=== PATIENT | male | born 1965 | race African-American/Black ===

== ENCOUNTER 2017-03-28 09:03 | Outpatient (CLI) | payer OTHER ==
[~2017-03-28 09:03] MED LIST: BACTRIM-DS1 EA ORAL; CEPHALEXIN500 MG ORAL
--- NOTE | 2017-03-28 14:36 | Diagnostic Imaging Report ---
Indication: Back pain Technique: MRI examination of the Lumbar spine was performed in a 1.5 Debbie magnet. Sequences obtained include sagittal and axial T1 and T2 fast spin echo, and sagittal STIR. Comparison: none Findings: There is a fairly wide based disc herniation likely extrusion at L5-S1 with portions of the herniated disc compressing the central thecal sac compromising the lateral recess and extending into the neural foramina. The disc is asymmetric with more mass effect on the left neural foramen than the right. There is visualized compression of the traversing S1 nerve roots both on parasagittal and transaxial images. There is mild foraminal stenosis present on the basis of a superimposed disk bulge extending into the foramina and hypertrophied facets. The disc is narrowed and desiccated. There are endplate spurs with fatty signal changes. There is generalized facet hypertrophy demonstrated within the lumbar spine most notably at L4-5. Remainder of the examination is normal. Conus medullaris seen at T12. Intervertebral discs are otherwise normal in appearance. There is no central lateral recess or neural foraminal stenosis. Bone marrow signal is otherwise normal. Alignment is normal. No abnormal fluid collections are seen. No soft tissue abnormalities are demonstrated. Ejection a parapelvic cysts within the left kidney. IMPRESSION: Wide-based disc herniation likely extrusion at L5-S1 with compression of the central thecal sac, compromise of the lateral recess with compression of the traversing S1 nerve roots bilaterally. This level also notable for mild neural foraminal stenosis on the basis of the disc pathology and facet hypertrophy. Mild generalized facet arthrosis noted.
== END 2017-03-28 11:03 | disposition home or self-care (01) ==
LOC: MRI 09:03
DX: M51.36 Other intervertebral disc degeneration, lumbar region (principal)
CPT/HCPCS: 72148

== ENCOUNTER 2018-05-30 13:24 | Outpatient (CLI) | payer OTHER ==
--- NOTE | 2018-05-30 16:46 | Diagnostic Imaging Report ---
Indication: Abdominal pain Technique: Aguirre-scale and duplex images of the upper abdomen were obtained. Doppler interrogation of the pancreatic and hepatic vessels Comparison: none Findings: Gallbladder is unremarkable, without stones, wall thickening, nor pericholecystic fluid. Sonographic Murillo's sign is negative. Common bile duct measures 3 mm in diameter. No intrahepatic biliary ductal dilatation. Liver demonstrates normal echogenicity, no focal abnormality. Portal vein and hepatic veins are patent. Pancreas is unremarkable. Spleen is unremarkable. Left kidney measures 11.2 cm in length. Right kidney measures 10.3 cm length. Both kidneys demonstrate normal echogenicity. There is no hydronephrosis. No focal abnormality . Non-aneurysmal abdominal aorta . Impression: Negative
== END 2018-05-30 15:24 | disposition home or self-care (01) ==
LOC: ULS 13:24
DX: R10.9 Unspecified abdominal pain (principal)
CPT/HCPCS: 76700